=== PATIENT | female | born 1955 | race Asian ===

== ENCOUNTER 2019-03-24 20:25 | Emergency (ER) | payer MEDICAID ==
[~2019-03-24] VITALS: Ht 162.6 cm; Wt 63.5 kg
[2019-03-24 20:46] VITALS: BP_SYST 120
--- NOTE | 2019-03-24 20:55 | NUR ---
Pt wheeled to bed hallway for evaluation
--- NOTE | 2019-03-24 21:00 | NUR ---
ER at bedside examining patient.
--- NOTE | 2019-03-24 21:10 | NUR ---
PT came to the ED for 14 hour history gradual onset, mild, nausea and diarrhea with generalized weakness and lower ABD cramping. Reports that pt was returning from [place] [facility] and she felt nauseous denies vomiting. Reports she has a LANGE. Denies diarrhea. NO other compaints/injuries noted. Will cont. to monitor.
[2019-03-24] MEDS ORDERED: MORPHINE 2 MG/ML INJ. SYRINGE IVP ONE (21:15)
[2019-03-24] MEDS ORDERED: ONDANSETRON HCL 4 MG/2 ML VIAL IVP ONE (21:15)
[2019-03-24] MEDS ORDERED: NACL 0.9% 1,000 ML IV ONE (21:15)
--- NOTE | 2019-03-24 21:32 | NUR ---
Pt wheeled to CT by tech
[2019-03-24 21:44] LABS: BASOPHILS % (AUTO) 0.4 % (0.0-2.0); HEMATOCRIT 39.9 % (36-48); LYMPHOCYTES # (AUTO) 0.5 K/uL (1.0-5.5); LYMPHOCYTES % (AUTO) 5.4 % (20.5-51.5); MEAN CORPUSCULAR HEMOGLOBIN 33 pg (27-31); MEAN CORPUSCULAR HGB CONC 35 % (32-36); MEAN CORPUSCULAR VOLUME 93 fL (79.0-98.0); MONOCYTES # (AUTO) 0.4 K/uL (0.0-1.0); MONOCYTES % (AUTO) 4.5 % (1.7-9.3); NEUTROPHILS # (AUTO) 8.8 K/uL (1.8-7.7); NEUTROPHILS % (AUTO) 89.7 % (40.0-70.0); PLATELET COUNT (AUTO) 247 K/uL (130-430); RED BLOOD CELL COUNT(AUTO) 4.29 MIL/uL (4.2-6.2); RED CELL DISTRIBUTION WIDTH 13.1 % (9.0-15.0); WHITE BLOOD COUNT (AUTO) 9.8 K/uL (4.8-10.8)
[2019-03-24 21:49] LABS: CALCIUM 8.8 mg/dL (8.4-11.0); CREATININE 0.78 mg/dL (0.55-1.30); POTASSIUM 3.7 mmol/L (3.5-5.1)
[2019-03-24 21:53] LABS: PROTHROMBIN TIME 9.7 SECS (9.5-12.5)
[2019-03-24 21:56] LABS: ALBUMIN 3.7 g/dL (3.4-4.8); TOTAL BILIRUBIN 0.9 mg/dL (0.0-1.0)
--- NOTE | 2019-03-24 22:44 | NUR ---
attempted to start IV twice. unable to start. charge nurse made aware.
--- NOTE | 2019-03-24 23:00 | NUR ---
PT resting comfortably in bed, no signs of acute distress. Will cont. to monitor.
[2019-03-24 23:53] LABS: BILIRUBIN,URINE NEGATIVE (NEGATIVE); BLOOD, URINE 2+ (NEGATIVE); CLARITY/URINE CLEAR (CLEAR); COLOR,URINE YELLOW (YELLOW); GLUCOSE,URINE NEGATIVE (NEGATIVE); KETONES,URINE NEGATIVE (NEGATIVE); LEUKOCYTE ESTERASE ,URINE NEGATIVE (NEGATIVE); NITRITE, URINE NEGATIVE (NEGATIVE); PH,URINE 5.5 (5.0-8.0); PROTEIN URINE NEGATIVE (NEGATIVE); UROBILINOGEN,URINE 0.2 (0.2-1.0)
[2019-03-24 23:59] LABS: BACTERIA,URINE RARE /HPF (None Seen); WBC,URINE 0-3 /HPF (0-3)
--- NOTE | 2019-03-25 | NUR ---
Pt resting comfortably in bed.
[2019-03-25] MEDS ORDERED: ACETAMINOPHEN 500 MG TABLET PO ONE (01:45)
[2019-03-25 01:50] VITALS: BP_SYST 120
--- NOTE | 2019-03-25 01:50 | NUR ---
Patient given written and verbal discharge instructions and verbalizes understanding. ER MD Dr. Calderon discussed with patient the results and treatment provided. Patient in stable condition. ID arm band removed. IV catheter removed intact and dressing applied, no active bleeding. Rx of zofran, levaquin, norco given. Patient educated on pain management and to follow up with PMD. Pain Scale 0/10. Opportunity for questions provided and answered. Medication side effect fact sheet provided.
[2019-03-25] MEDS ORDERED: ACETAMINOPHEN 500 MG TABLET ONE (02:00)
== END 2019-03-25 01:50 | disposition home or self-care (01) ==
LOC: SED 20:25
DX: R19.7 Diarrhea, unspecified (principal); R10.32 Left lower quadrant pain; R10.9 Unspecified abdominal pain; R53.1 Weakness
CPT/HCPCS: 36415; 74176; 80053; 81000; 82550; 83605; 83690; 84484; 85025; 85610; 85730; 86710; 87040; 93005; 96361; 96374; 96375; 99284; J2270; J2405; J7030